=== PATIENT | female | born 1970 | race Caucasian/White ===

== ENCOUNTER 2018-09-12 20:11 | Emergency (ER) | payer BC ==
[~2018-09-12] VITALS: Ht 167.6 cm; Wt 68.0 kg
[2018-09-12 20:21] VITALS: Ht 167.6 cm; Wt 68.0 kg
[2018-09-12] MEDS ORDERED: SOD CHLORIDE 0.9% 500 ML IV STA (22:25)
[2018-09-12] MEDS ORDERED: LORAZEPAM 2 MG INJ IV STA (22:25)
[2018-09-12] MEDS ORDERED: ONDANSETRON 4 MG INJ IV STA (22:25)
--- NOTE | 2018-09-13 00:50 | PSY ---
Date/Time of Note Date/Time of Note DATE: 09/13/18 TIME: 00:49 Psychiatric Subjective Eval Consent Pt consented to telemedicine: No Subjective Evaluation Patient location: emergency Chief Complaint: BIBR 89, N/V/D, THURMAN; MRI OF YESTERDAY WAS NEGATIVE; ANXIETY ATTACK IN TRIAGE Allergies: Coded Allergies: No Known Allergy (Unverified , 09/12/18) Psychiatric Objective Eval Mental Status Examination: Laboratory Results Laboratory Tests Test 09/12/18 22:33 09/12/18 23:43 White Blood Count 5.6 10^3/ul Red Blood Count 4.47 10^6/ul Hemoglobin 13.8 g/dl Hematocrit 40.9 % Mean Corpuscular Volume 91.5 fl Mean Corpuscular Hemoglobin 30.9 pg Mean Corpuscular Hemoglobin Concent 33.7 g/dl Red Cell Distribution Width 11.9 % Platelet Count 208 10^3/UL Mean Platelet Volume 10.1 fl Immature Granulocytes % 0.400 % Neutrophils % 71.6 % Lymphocytes % 22.4 % Monocytes % 4.7 % Eosinophils % 0.5 % Basophils % 0.4 % Nucleated Red Blood Cells % 0.0 /100WBC Immature Granulocytes # 0.020 10^3/ul Neutrophils # 4.0 10^3/ul Lymphocytes # 1.3 10^3/ul Monocytes # 0.3 10^3/ul Eosinophils # 0.0 10^3/ul Basophils # 0.0 10^3/ul Nucleated Red Blood Cells # 0.0 10^3/ul Sodium Level 140 mmol/L Potassium Level 4.0 mmol/L Chloride Level 105 mmol/L Carbon Dioxide Level 27 mmol/L Anion Gap 8 Blood Urea Nitrogen 11 mg/dl Creatinine 0.88 mg/dl Est Glomerular Filtrat Rate mL/min > 60 mL/min Glucose Level 108 mg/dl Calcium Level 9.8 mg/dl Total Bilirubin 0.2 mg/dl Direct Bilirubin 0.00 mg/dl Indirect Bilirubin 0.2 mg/dl Aspartate Amino Transf (AST/SGOT) 28 IU/L Alanine Aminotransferase (ALT/SGPT) 28 IU/L Alkaline Phosphatase 50 IU/L Total Protein 7.5 g/dl Albumin 4.6 g/dl Globulin 2.90 g/dl Albumin/Globulin Ratio 1.58 Salicylates Level 4.5 mg/dl Acetaminophen Level < 10.0 ug/ml Ethyl Alcohol Level < 10.0 mg/dl Urine Color YELLOW Urine Clarity CLEAR Urine pH 5.0 Urine Specific [place] 1.027 Urine Ketones 1+ mg/dL Urine Nitrite NEGATIVE mg/dL Urine Bilirubin NEGATIVE mg/dL Urine Urobilinogen 1+ mg/dL Urine Leukocyte Esterase NEGATIVE Ahsan/ul Urine Microscopic RBC 4 /HPF Urine Microscopic WBC 3 /HPF Urine Mucus FEW /HPF Urine Hemoglobin 1+ mg/dL Urine Glucose NEGATIVE mg/dL Urine Total Protein NEGATIVE mg/dl Urine Opiates Screen Negative Urine Barbiturates Negative Urine Amphetamines Screen Negative Urine Benzodiazepines Screen Negative Urine Cocaine Screen Negative Urine Cannabinoids Negative Assessment and Plan Recommendation/Plan Discharge Disposition: Other (Other) Legal Status: Voluntary Assessment Additional comments: IDENTIFYING INFORMATION: 48 year old Female patient who is currently located at the hospital and for whom psychiatric consultation was requested. SOURCES OF INFORMATION: The patient who appears to be somewhat reliable and the medical records; the nursing staff. CHIEF COMPLAINT: "I don't know who you are". HISTORY OF PRESENT ILLNESS: The patient was interviewed via telemedicine in the presence of and under the supervision of nursing staff of the hospital. The consent to conducting this interview via telemedicine was obtained by the nursing staff at the hospital. KEON Sewell reports that the patient presented with hearing buzzing, feels her brain is swollen, feels dizzy, has anxiety over a recent divorce. Denies having SI, HI. Has been tangential with staff, rambling. The patient reports that she does not want to talk with someone over telemedicine but only in person, because she does not even know who the current provider is. PAST MEDICAL HISTORY: Unable to assess as the patient was not able to cooperate with the interview at this time. CURRENT MEDICATIONS: Unable to assess as the patient was not able to cooperate with the interview at this time. ALLERGIES TO MEDICATIONS: no known drug allergies per chart LABORATORY TESTS: CBC unremarkable, CMP unremarkable, UDS negative, no alcohol level detected. SOCIAL HISTORY: Unable to assess as the patient was not able to cooperate with the interview at this time. REVIEW OF SYSTEMS: unable to assess due to the patient not being able to cooperate. MENTAL STATUS EXAMINATION: General Appearance and Behavior: Calm, not cooperative with the interview, somewhat distant with the current interviewer, makes fair eye contact, fairly- groomed, no abnormal movements noted. Speech: Regular rate, regular rhythm, normal latency, normal volume, somewhat decreased amount. Flow of thought: unable to assess. Content of thought: unable to assess. Mood: unable to assess Affect: unable to assess Attention: normal based on the interview. Insight: unable to assess Judgment: unable to assess Memory: unable to assess. Sensorium: alert and oriented to person, unable to assess further ASSESSMENT: unable to provide an assessment as the patient did not cooperate at all reporting that she would like to speak in person only. PLAN: - Medication management: unable to provide medication recommendations. - Disposition: unable to provide a disposition plan at this time. please reconsult psychiatry over telemedicine if the patient consents to conducting this interview over telemedicine. Discussed about the above plan with KEON Sewell. I called the emergency room physician who is taking care of the patient to discuss about the above plan but the emergency room physician is not available at this time. I left my phone number with the hospital staff requesting a callback so that the emergency room physician can reach me when they become available. MANISHA BECKER MD Sep 13, 2018 00:50
--- NOTE | 2018-09-13 02:38 | ERD ---
ER Documentation Chief Complaint Chief Complaint BIBR 89, N/V/D, THURMAN; MRI OF YESTERDAY WAS NEGATIVE; ANXIETY ATTACK IN TRIAGE HPI Is a 40-year-old female brought in by rescue 89 with complaints of headache anxiety chest pain that is been going on for 3 months. She did refuses to delineate any further other than giving me the history that she had a negative MRI at another ER 2 days ago. She also states that she is "not crazy ", however she feels that her is "poisoning her kids mines against her "after recent divorce. Speaking very tangentially and not answering questions directly. ROS All systems reviewed and are negative except as per history of present illness. Allergies Allergies: Coded Allergies: No Known Allergy (Unverified , 09/12/18) PMhx/Soc Medical and Surgical Hx: pt denies Medical Hx History of Surgery: Yes ( x2) Hx Alcohol Use: Yes ("a couple beers a year") Hx Substance Use: No Hx Tobacco Use: Yes ("2 cigarettes a day") Smoking Status: Current some day smoker Physical Exam Vitals Vital Signs Date Temp Pulse Resp B/P (MAP) Pulse Ox O2 O2 Flow FiO2 Time Delivery Rate 09/13/18 57 17 98/59 (72) 97 Room Air 06:00 09/13/18 59 18 87/52 (64) 98 Room Air 04:00 09/13/18 69 16 106/69 98 Room Air 02:00 (81) 09/13/18 69 16 94/41 (58) 99 Room Air 00:00 09/12/18 98.9 66 18 108/58 97 20:21 (75) Physical Exam Const: No acute distress Head: Atraumatic Eyes: Normal Conjunctiva ENT: Normal External Ears, Nose and Mouth. Neck: Full range of motion. No meningismus. Resp: Clear to auscultation bilaterally Cardio: Regular rate and rhythm, no murmurs Abd: Soft, non tender, non distended. Normal bowel sounds Skin: No petechiae or rashes Back: No midline or flank tenderness Ext: No cyanosis, or edema Neur: Awake and alert Psych: Normal Mood and Affect Result Diagram: 09/12/18223209/12/182232 Results 24 hrs Laboratory Tests Test 09/12/18 22:33 09/12/18 23:43 09/13/18 07:05 White Blood Count 5.6 10^3/ul Red Blood Count 4.47 10^6/ul Hemoglobin 13.8 g/dl Hematocrit 40.9 % Mean Corpuscular Volume 91.5 fl Mean Corpuscular Hemoglobin 30.9 pg Mean Corpuscular 33.7 g/dl Hemoglobin Concent Red Cell Distribution Width 11.9 % Platelet Count 208 10^3/UL Mean Platelet Volume 10.1 fl Immature Granulocytes % 0.400 % Neutrophils % 71.6 % Lymphocytes % 22.4 % Monocytes % 4.7 % Eosinophils % 0.5 % Basophils % 0.4 % Nucleated Red Blood Cells % 0.0 /100WBC Immature Granulocytes # 0.020 10^3/ul Neutrophils # 4.0 10^3/ul Lymphocytes # 1.3 10^3/ul Monocytes # 0.3 10^3/ul Eosinophils # 0.0 10^3/ul Basophils # 0.0 10^3/ul Nucleated Red Blood Cells # 0.0 10^3/ul Sodium Level 140 mmol/L Potassium Level 4.0 mmol/L Chloride Level 105 mmol/L Carbon Dioxide Level 27 mmol/L Anion Gap 8 Blood Urea Nitrogen 11 mg/dl Creatinine 0.88 mg/dl Est Glomerular Filtrat > 60 mL/min Rate mL/min Glucose Level 108 mg/dl Calcium Level 9.8 mg/dl Total Bilirubin 0.2 mg/dl Direct Bilirubin 0.00 mg/dl Indirect Bilirubin 0.2 mg/dl Aspartate Amino 28 IU/L Transf (AST/SGOT) Alanine 28 IU/L Aminotransferase (ALT/SGPT) Alkaline Phosphatase 50 IU/L Total Protein 7.5 g/dl Albumin 4.6 g/dl Globulin 2.90 g/dl Albumin/Globulin Ratio 1.58 Salicylates Level 4.5 mg/dl Acetaminophen Level < 10.0 ug/ml Ethyl Alcohol Level < 10.0 mg/dl Urine Color YELLOW Urine Clarity CLEAR Urine pH 5.0 Urine Specific [place] 1.027 Urine Ketones 1+ mg/dL Urine Nitrite NEGATIVE mg/dL Urine Bilirubin NEGATIVE mg/dL Urine Urobilinogen 1+ mg/dL Urine Leukocyte Esterase NEGATIVE Ahsan/ul Urine Microscopic RBC 4 /HPF Urine Microscopic WBC 3 /HPF Urine Mucus FEW /HPF Urine Hemoglobin 1+ mg/dL Urine Glucose NEGATIVE mg/dL Urine Total Protein NEGATIVE mg/dl Urine Opiates Screen Negative Urine Barbiturates Negative Urine Amphetamines Screen Negative Urine Benzodiazepines Screen Negative Urine Cocaine Screen Negative Urine Cannabinoids Negative POC Beta HCG, Qualitative NEGATIVE Current Medications Medications Dose Sig/Nadege Start Time Status Last (Trade) Ordered Route PRN Stop Time Admin Dose Reason Admin Sodium 500 ml @ Q1H STAT 09/12/18 DC 09/12/18 Chloride 500 mls/hr IV 22:25 22:49 09/12/18 23:24 Lorazepam 1 mg ONCE STAT 09/12/18 DC 09/12/18 (Ativan) IV 22:25 22:48 09/12/18 22:27 Ondansetron 4 mg ONCE STAT 09/12/18 DC 09/12/18 HCl (Zofran IV 22:25 22:48 Inj) 09/12/18 22:27 Procedures/MDM Emergency department course: Medical causes ruled out. Patient's behavioral symptoms have stabilized while in the department. Patient is medically cleared and appropriate for psychiatric evaluation and work up. No e/o neurologic, toxic, infectious, or metabolic cause. Patient refused telemetry psychiatry. At this time she is pending an person PET team evaluation as she does not want to speak to a "robot" Patient was evaluated in person here and has been cleared for discharge home. I did review with the patient her labs and workup here. Will discharge now with follow-up as suggested Departure Diagnosis: Primary Impression: Chronic head pain Additional Impression: Anxiety Condition: Stable LIZZIE RODRÍGUEZ Sep 13, 2018 02:38 KEVYN VUONG DO Sep 13, 2018 08:07
[2018-09-13 06:00] VITALS: BP 98/59; PULSE 57; RESP 17
== END 2018-09-13 09:51 | disposition home or self-care (01) ==
LOC: E/R 20:11
DX: R51 Headache (principal); F41.9 Anxiety disorder, unspecified; F17.210 Nicotine dependence, cigarettes, uncomplicated; R41.82 Altered mental status, unspecified
CPT/HCPCS: 36415; 70450; 71045; 80053; 80307; 81001; 81025; 85025; 93005; 96374; 96375; 99285; J2060; J2405; J7040